=== PATIENT | male | born 1990 | race African-American/Black ===

== ENCOUNTER 2019-04-07 09:29 | Emergency (ER) | payer MEDICAID ==
[~2019-04-07] VITALS: Ht 185.4 cm; Wt 91.0 kg
[2019-04-07 13:26] VITALS: BP 138/82
== END 2019-04-07 13:53 | disposition home or self-care (01) ==
LOC: ER 09:32
DX: S93.401A Sprain of unspecified ligament of right ankle, initial encounter (principal); S90.31XA Contusion of right foot, initial encounter; F12.10 Cannabis abuse, uncomplicated; F17.200 Nicotine dependence, unspecified, uncomplicated; Y04.2XXA Assault by strike against or bumped into by another person, initial encounter; Y93.89 Activity, other specified; Y92.89 Other specified places as the place of occurrence of the external cause; Y99.8 Other external cause status
CPT/HCPCS: 73610; 73630; 99283